=== PATIENT | female | born 1950 | race Caucasian/White ===

== ENCOUNTER 2023-04-18 17:25 | Observation (INO) | payer OTHER ==
[2023-04-18 18:08] VITALS: BMI 32.3
[2023-04-18] MEDS ORDERED: KETOROLAC TROMETHAMINE 15 MG/ML VIAL ONE (18:44)
[2023-04-18] MEDS: KETOROLAC TROMETHAMINE 15 MG/ML VIAL IVPUSH ONE (19:07)
[2023-04-18 19:09] LABS: BASO % 0.6 % (0-2.0); EOS % 0.3 % (0-4.5); HEMATOCRIT 42.8 % (32.4-45.2); HEMOGLOBIN 14.3 GM/dL (10.7-15.3); LYMPH % 8.1 % (8-40); MCHC 33.4 g/dl (32.0-36.0); MEAN CELL VOLUME 89.8 fl (80-96); MONO % 8.1 % (3.8-10.2); NEUT % 82.9 % (42.8-82.8); PLATELET COUNT 307 10^3/uL (134-434); RBC 4.77 M/mm3 (3.60-5.2); RDW 14.6 % (11.6-15.6); WHITE BLOOD COUNT 12.8 K/mm3 (4.0-10.0)
[2023-04-18 19:34] LABS: POTASSIUM 4.7 mmol/L (3.5-5.1)
[2023-04-18 19:36] LABS: ALBUMIN 3.9 g/dl (3.4-5.0); CALCIUM 9.7 mg/dL (8.5-10.1)
[2023-04-18 19:37] LABS: BLOOD UREA NITROGEN 11.1 mg/dL (7-18)
[2023-04-18 19:39] LABS: CREATININE 1.1 mg/dL (0.55-1.3); URIC ACID 7.9 mg/dL (2.6-7.2)
[2023-04-18 19:41] LABS: BILIRUBIN,TOTAL 2.1 mg/dL (0.2-1); TOT PROT 7.7 g/dl (6.4-8.2)
[2023-04-18 20:26] LABS: ERYTHROCYTE SEDIMENTATION RATE 27 mm/hr (0-30)
[2023-04-18 20:46] LABS: INR 1.13 (0.83-1.09); PROTHROMBIN TIME (PATIENT) 13.1 SEC (9.7-13.0)
[2023-04-18 20:48] LABS: ACTIVATED PTT 28.9 SECONDS (25.2-36.5)
[2023-04-18] MEDS: FOLIC ACID INJECTION - 1 MG, THIAMINE HCL 100 MG, MULTIVIT INJECTION ADULT 10 ML in SOD... IVPB ONE (22:23)
[2023-04-19] MEDS ORDERED: LIDOCAINE 4% PATCH TP ONE (06:48)
[2023-04-19] MEDS: ACETAMINOPHEN 325 MG TABLET (FP) PO ONE (07:04)
[2023-04-19] MEDS: LIDOCAINE 5% TOPICAL PATCH TP ONE (07:04)
[2023-04-19] MEDS ORDERED: ACETAMINOPHEN 325 MG TABLET (FP) PO PRN (08:06)
[2023-04-19] MEDS ORDERED: COLCHICINE 0.6 MG TAB ONE (10:20)
[2023-04-19] MEDS ORDERED: LEVOTHYROXINE NA 50 MCG TABLET (FP) ONE (10:21)
[2023-04-19] MEDS ORDERED: propRANOLol HCL 10 MG TABLET ONE (10:21)
[2023-04-19] MEDS: COLCHICINE 0.6 MG TAB PO ONE (10:30)
[2023-04-19] MEDS: LEVOTHYROXINE NA 50 MCG TABLET (FP) PO SCH (10:31)
[2023-04-19 10:34] LABS: BASO % 0.8 % (0-2.0); EOS % 1.3 % (0-4.5); HEMOGLOBIN 13.2 GM/dL (10.7-15.3); LYMPH % 16.6 % (8-40); MCH 30.1 pg (25.7-33.7); MCHC 33.1 g/dl (32.0-36.0); MEAN PLT VOLUME 7.2 fl (7.5-11.1); MONO % 9.7 % (3.8-10.2); NEUT % 71.6 % (42.8-82.8); PLATELET COUNT 313 10^3/uL (134-434); RBC 4.39 M/mm3 (3.60-5.2); RDW 14.1 % (11.6-15.6); WHITE BLOOD COUNT 13.4 K/mm3 (4.0-10.0)
[2023-04-19 11:09] LABS: POTASSIUM 3.7 mmol/L (3.5-5.1)
[2023-04-19 11:11] LABS: BLOOD UREA NITROGEN 11.6 mg/dL (7-18); CALCIUM 9.1 mg/dL (8.5-10.1)
[2023-04-19] MEDS: LITHIUM CARBONATE 300 MG CAPSULE PO SCH (13:14)
[2023-04-19 13:55] VITALS: BP 99/52; PULSE 71; RESP 17; TEMP 98.9
[2023-04-19] MEDS ORDERED: LIDOCAINE PATCH REMOVAL MC SCH (22:00)
[2023-04-20] MEDS ORDERED: COLCHICINE 0.6 MG CAPSULE PO SCH (10:00)
== END 2023-04-19 18:35 | disposition home or self-care (01) ==
LOC: JER 17:25 → JERBED 20:49
PROVIDERS: ADMIT Internal Medicine; ATTEND Internal Medicine
PROC: 3E033GC Introduction of Other Therapeutic Substance into Peripheral Vein, Percutaneous Approach (ICD-10-PCS; principal; 2023-04-18)
PROC: 3E0333Z Introduction of Anti-inflammatory into Peripheral Vein, Percutaneous Approach (ICD-10-PCS; 2023-04-18)
DX: M25.472 Effusion, left ankle (principal); M25.572 Pain in left ankle and joints of left foot; F31.9 Bipolar disorder, unspecified; M19.90 Unspecified osteoarthritis, unspecified site; R00.0 Tachycardia, unspecified; M10.9 Gout, unspecified; J30.1 Allergic rhinitis due to pollen
CPT/HCPCS: 36415; 73610-TC-LT-FY; 73630-TC-LT; 80048; 80053; 80061; 83036; 84550; 85025; 85610; 85651; 85730; 86140; 86850; 86900; 86901; 96365; 96375; 99285-25; G0378